=== PATIENT | male | born 1990 | race Two or more races ===

== ENCOUNTER 2021-03-02 13:40 | Emergency (ER) | payer OTHER ==
[~2021-03-02] VITALS: Ht 175.3 cm; Wt 83.5 kg
== END 2021-03-02 18:10 | disposition home or self-care (01) ==
LOC: ER 13:40
DX: S00.81XA Abrasion of other part of head, initial encounter (principal); S20.211A Contusion of right front wall of thorax, initial encounter; S13.8XXA Sprain of joints and ligaments of other parts of neck, initial encounter; W07.XXXA Fall from chair, initial encounter; Y93.89 Activity, other specified; Y92.098 Other place in other non-institutional residence as the place of occurrence of the external cause; Y99.8 Other external cause status